=== PATIENT | female | born 2000 | race Caucasian/White ===

== ENCOUNTER 2020-08-22 08:30 | Inpatient (IN) | payer OTHER ==
[2020-08-22] MEDS ORDERED: AMPICILLIN - 2 GM in SODIUM CHLORIDE 100 ML IVPB ONE (09:36)
[2020-08-22] MEDS ORDERED: AMPICILLIN SODIUM 2 GM VIAL ONE (09:41)
[2020-08-22] MEDS ORDERED: ELECTROLYTE-148 SOLN 1,000 ML IV SCH (09:45)
[2020-08-22 09:58] LABS: BASO % 0.2 % (0-2.0); EOS % 0.7 % (0-4.5); HEMATOCRIT 35.5 % (32.4-45.2); MCH 31.1 pg (25.7-33.7); MCHC 33.9 g/dl (32.0-36.0); MEAN CELL VOLUME 91.7 fl (80-96); MONO % 7.5 % (3.8-10.2); NEUT % 58.6 % (42.8-82.8); PLATELET COUNT 245 K/MM3 (134-434); RBC 3.87 M/mm3 (3.60-5.2); RDW 13.6 % (11.6-15.6); WHITE BLOOD COUNT 9.4 K/mm3 (4.0-10.0)
[2020-08-22 10:01] LABS: INR 0.92 (0.83-1.09); PROTHROMBIN TIME (PATIENT) 11.2 SEC (9.7-13.0)
[2020-08-22 10:18] LABS: POTASSIUM 3.9 mmol/L (3.5-5.1)
[2020-08-22 10:21] LABS: BLOOD UREA NITROGEN 6.5 mg/dL (7-18); CALCIUM 9.1 mg/dL (8.5-10.1)
[2020-08-22 10:25] LABS: CREATININE 0.5 mg/dL (0.55-1.3)
[2020-08-22] MEDS ORDERED: FENTANYL/BUPIVACAINE/NS/PF - PCEA - 50 ML DISP.SYRIN EP ONE (11:33)
[2020-08-22] MEDS ORDERED: OXYTOCIN 30 UNITS in 0.9% NS 30 UNIT/500 ML INFUS.BAG IVPB SCH (12:45)
[2020-08-22] MEDS ORDERED: OXYTOCIN 30 UNITS in 0.9% NS 30 UNIT/500 ML INFUS.BAG IVPB ONE (12:46)
[2020-08-22] MEDS ORDERED: LIDOCAINE HCL 1% PRESERVATIVE FREE - 30ML VIAL ONE (13:00)
[2020-08-22] MEDS ORDERED: OXYTOCIN 20 UNITS in 0.9% NS 20 UNIT/1,000 ML INFUS.BAG IV ONE (13:00)
[2020-08-22] MEDS ORDERED: AMPICILLIN - 1 GM in SODIUM CHLORIDE 100 ML IVPB SCH (13:36)
[2020-08-22] MEDS ORDERED: BENZOCAINE 28 GM HEMORRHOIDAL OINTMENT TP PRN (13:41)
[2020-08-22] MEDS ORDERED: BENZOCAINE 20% 57 GM BOTTLE TP PRN (13:41)
[2020-08-22] MEDS ORDERED: WITCH HAZEL 50% (TUCKS) 40 PAD/JAR PAD TP PRN (13:41)
[2020-08-22] MEDS ORDERED: BISACODYL 10 MG SUPP.RECT RC PRN (13:41)
[2020-08-22] MEDS ORDERED: ACETAMINOPHEN 325 MG TABLET (FP) PO PRN (13:41)
[2020-08-22] MEDS ORDERED: METHYLERGONOVINE MALEATE 0.2 MG/1 ML AMP IM PRN (13:41)
[2020-08-22] MEDS ORDERED: IBUPROFEN 600 MG TABLET (FP) PO PRN (13:41)
[2020-08-22] MEDS ORDERED: OXYTOCIN 20 UNITS in 0.9% NS 20 UNIT/1,000 ML INFUS.BAG IV SCH (13:45)
[2020-08-22 14:13] VITALS: BMI 28.1
[2020-08-23 08:20] LABS: BASO % 0.3 % (0-2.0); EOS % 0.8 % (0-4.5); HEMATOCRIT 32.7 % (32.4-45.2); LYMPH % 20.6 % (8-40); MCH 30.9 pg (25.7-33.7); MCHC 33.6 g/dl (32.0-36.0); MEAN CELL VOLUME 91.8 fl (80-96); MEAN PLT VOLUME 7.1 fl (7.5-11.1); MONO % 7.3 % (3.8-10.2); PLATELET COUNT 241 K/MM3 (134-434); RBC 3.56 M/mm3 (3.60-5.2); RDW 13.6 % (11.6-15.6); WHITE BLOOD COUNT 13.1 K/mm3 (4.0-10.0)
[2020-08-23] MEDS: PRENATAL VITAMINS W/ FOLIC ACID TABLET (FP) PO SCH (09:50)
[2020-08-23] MEDS ORDERED: SENNOSIDES/DOCUSATE COMBO (SENNA PLUS) TABLET (UD) PO PRN (22:00)
[2020-08-24] MEDS: PRENATAL VITAMINS W/ FOLIC ACID TABLET (FP) PO SCH (09:31)
[2020-08-24 12:20] VITALS: BP 124/69; PULSE 80; TEMP 99.1
== END 2020-08-24 14:20 | disposition home or self-care (01) | DRG 560 ==
LOC: JDEL 08:30 → JLDR 09:15 → J3W 15:45
PROVIDERS: ADMIT Obstetrics & Gynecology; ATTEND Obstetrics & Gynecology
PROC: 10E0XZZ Delivery of Products of Conception, External Approach (ICD-10-PCS; principal; 2020-08-22)
PROC: 0HQ9XZZ Repair Perineum Skin, External Approach (ICD-10-PCS; 2020-08-22)
PROC: 0W8NXZZ Division of Female Perineum, External Approach (ICD-10-PCS; 2020-08-22)
DX: O70.0 First degree perineal laceration during delivery (principal); Z3A.39 39 weeks gestation of pregnancy; Z22.330 Carrier of Group B streptococcus; Z37.0 Single live birth
CPT/HCPCS: 36415; 59409; 80048; 85025; 85610; 85730; 86780; 86850; 86900; 86901; C9803; U0003